=== PATIENT | male | born 1990 | race African-American/Black ===

== ENCOUNTER 2021-08-09 22:25 | Emergency (ER) | payer OTHER ==
[2021-08-09 22:30] VITALS: BMI 25.0
[2021-08-09] MEDS ORDERED: ONDANSETRON *ODT* 4 MG TABLET SL ONE (22:40)
[2021-08-09] MEDS ORDERED: ONDANSETRON *ODT* 4 MG TABLET ONE (22:58)
[2021-08-09] MEDS ORDERED: SODIUM CHLORIDE 0.9% 500 ML INFUS.BAG IV ONE (23:33)
[2021-08-10 01:22] LABS: BASO % 0.2 % (0-2.0); EOS % 0.2 % (0-4.5); HEMATOCRIT 38.8 % (35.4-49); HEMOGLOBIN 13.3 GM/dL (11.7-16.9); LYMPH % 8.7 % (8-40); MCH 31.2 pg (25.7-33.7); MCHC 34.3 g/dl (32.0-35.9); MEAN PLT VOLUME 6.5 fl (7.5-11.1); MONO % 8.9 % (3.8-10.2); PLATELET COUNT 285 10^3/uL (134-434); RBC 4.27 M/mm3 (4.00-5.60); RDW 12.9 % (11.9-15.9); WHITE BLOOD COUNT 8.7 K/mm3 (4.0-10.0)
[2021-08-10 02:07] VITALS: BP 126/73; PULSE 86; TEMP 99
[2021-08-10 02:18] LABS: BLOOD UREA NITROGEN 11.3 mg/dL (7-18); CHLORIDE 111 mmol/L (98-107); CO2 29 mmol/L (21-32); CREATININE 1.4 mg/dL (0.55-1.3); GLUCOSE,RANDOM 110 mg/dL (74-106); SODIUM 144 mmol/L (136-145)
[2021-08-10 02:19] LABS: ALBUMIN 3.7 g/dl (3.4-5.0); ALK PHOS 44 U/L (45-117); BILIRUBIN,TOTAL 0.3 mg/dL (0.2-1); CALCIUM 8.8 mg/dL (8.5-10.1); SGOT/AST 15 U/L (15-37); SGPT/ALT 19 U/L (13-61); TOT PROT 7.1 g/dl (6.4-8.2)
[2021-08-10 20:13] LABS: ANION GAP 4 MMOL/L (8-16)
== END 2021-08-10 02:46 | disposition home or self-care (01) ==
LOC: JER 22:25
DX: F12.10 Cannabis abuse, uncomplicated (principal)
CPT/HCPCS: 36415; 80053; 82962; 85025; 93005; 93010; 99284-25; Q0162